=== PATIENT | male | born 1955 | race Caucasian/White ===

== ENCOUNTER → 2016-11-30 | Outpatient (CLI) | payer OTHER ==
--- NOTE | 2016-12-03 13:14 | US ---
EXAM DATE: 11/30/16 PATIENT'S AGE: 61 Patient: ULYSSES OLEARY Facility: [facility] Site . Site : 1955 Study: US-Abdomen [id number]/10/2017 2:03:37 PM Ordering Physician: Sarah Alvarado Final Report: INDICATION: ruq pain TECHNIQUE: Ultrasound abdomen limited. Sonographic images of the right upper quadrant were obtained using cervantes-scale and color Doppler images. COMPARISON: None FINDINGS: Liver: Normal in size and echotexture. No masses. No intrahepatic biliary dilatation. Gallbladder: No stones or sludge. Normal wall thickness. No pericholecystic fluid. Common bile duct: 4 mm. Pancreas: The image portion is grossly unremarkable. Right kidney: 11.2 x 4.6 x 5.6 cm. Normal echotexture and cortex. No masses, stones, or hydronephrosis. Vasculature: Proximal abdominal aorta and IVC are normal. IMPRESSION: Unremarkable right upper quadrant ultrasound. Dictated by Fer Parrish MD @ 12/01/2016 4:43:22 AM Dictated by: Fer Parrish MD @ 12/01/2016 04:44:11 Signed by: Fer Parrish MD @12/01/2016 4:44:11 AM (Electronic Signature) Report Signed by Proxy and Original Signed Document filed in the Medical Record. [facility]
== END ==
LOC: MW.US 13:21
PROVIDERS: ATTEND Nurse Practitioner
DX: R10.11 Right upper quadrant pain (principal)
CPT/HCPCS: 76705; 76705-26

== ENCOUNTER → 2016-12-12 | Outpatient (CLI) | payer OTHER | LOC: MW.LAB 11:16 | PROVIDERS: ATTEND Student in an Organized Health Care Education/Training Program | DX: Z31.41 Encounter for fertility testing (principal) | CPT/HCPCS: 89322 ==